=== PATIENT | female | born 1960 | race Caucasian/White ===

== ENCOUNTER → 2020-03-11 | Outpatient (CLI) | payer OTHER | LOC: LAB 09:50 | PROVIDERS: ATTEND Anesthesiology | DX: Z01.812 Encounter for preprocedural laboratory examination (principal); Z20.828 Contact with and (suspected) exposure to other viral communicable diseases ==

== ENCOUNTER → 2020-04-30 | Outpatient (CLI) | payer OTHER | LOC: LAB 08:12 | PROVIDERS: ATTEND Anesthesiology | DX: Z01.812 Encounter for preprocedural laboratory examination (principal); Z20.828 Contact with and (suspected) exposure to other viral communicable diseases ==